=== PATIENT | female | born 1965 | race Caucasian/White ===

== ENCOUNTER 2018-06-08 08:16 | Day surgery (SDC) | payer OTHER ==
[~2018-06-08] VITALS: Ht 165.1 cm; Wt 77.0 kg
[~2018-06-08 08:16] MED LIST: SULI150T PO
[2018-06-08 09:07] VITALS: Ht 165.1 cm; Wt 77.0 kg
[2018-06-08] MEDS ORDERED: SIMVASTATIN DAILY (09:13)
[2018-06-08] MEDS ORDERED: LEVOTHYROXINE DAILY (09:13)
[2018-06-08 10:09] VITALS: BP 113/61; PULSE 80; RESP 18
[2018-06-08] MEDS ORDERED: FENTAnyl 50 MCG/ML VIAL ONE (10:45)
[2018-06-08] MEDS ORDERED: MIDAZOLAM 1 MG/ML 2 ML INJ ONE ×2 (10:45)
[2018-06-08 11:03] VITALS: BP 100/59; PULSE 61; RESP 18
== END 2018-06-08 12:31 | disposition home or self-care (01) ==
LOC: GIL 08:16
PROVIDERS: ATTEND Internal Medicine Gastroenterology
DX: Z12.11 Encounter for screening for malignant neoplasm of colon (principal); K64.8 Other hemorrhoids
CPT/HCPCS: 45378; J2250; J3010